=== PATIENT | female | born 1950 | race Caucasian/White ===

== ENCOUNTER → 2017-09-23 | Outpatient (CLI) | payer MEDICARE, BC ==
--- NOTE | 2017-09-23 15:08 | US ---
EXAMINATION TYPE: US thyroid st tissue head/neck DATE OF EXAM: 09/23/2017 COMPARISON: US 2016 CLINICAL HISTORY: E04.1 THYROID NODULE. Follow up thyroid nodule, history of thyroid FNA GLAND SIZE: Right Lobe: 5.0 x 1.3 x 1.3 cm Overall Parenchyma: heterogenous Left Lobe: 4.7 x 2.6 x 2.3 cm Overall Parenchyma: heterogeneous Isthmus Thickness: 0.6 cm NODULES RIGHT: # of nodules measured on right: 0 LEFT: # of nodules measured on left: 1 1. 3.1 X 2.4 x 2.4 cm hypoechoic mixed nodule at the mid pole with well-defined margins. This nodul e is wider than tall and shows intranodular vascularity. Prior size: 3.8 x 2.5 x 2.6 cm ISTHMUS: # of nodules measured in the isthmus: 0 Bilateral neck scanned, no evidence of lymphadenopathy. IMPRESSION: Large complex mixed nodule left thyroid lobe is slightly smaller in size relative to the prior study.
== END | disposition home or self-care (01) ==
LOC: RADUSWWP 14:37
PROVIDERS: ATTEND Otolaryngology
DX: E04.1 Nontoxic single thyroid nodule (principal)
CPT/HCPCS: 76536

== ENCOUNTER → 2017-10-19 | Outpatient (CLI) | payer MEDICARE, BC ==
--- NOTE | 2017-10-21 10:54 | MM ---
Reason for exam: screening (asymptomatic). Last mammogram was performed 1 year and 1 month ago. History: Patient is postmenopausal. Family history of breast cancer in aunt. Took estrogen for 5 years 4 months. Took progesterone for 5 years 4 months. Physical Findings: A clinical breast exam by your physician is recommended on an annual basis and results should be correlated with mammographic findings. MG 3D Screening Mammo W/Cad Bilateral CC and MLO view(s) were taken. Prior study comparison: September 23, 2016, bilateral MG 3d screening mammo w/cad. July 30, 2015, bilateral MG screening mammo w CAD. There are scattered fibroglandular densities. No significant changes when compared with prior studies. ASSESSMENT: Benign, BI-RAD 2 RECOMMENDATION: Routine screening mammogram of both breasts in 1 year.
== END | disposition home or self-care (01) ==
LOC: RADMAMWWP 09:53
PROVIDERS: ATTEND Family Medicine
DX: Z12.31 Encounter for screening mammogram for malignant neoplasm of breast (principal)
CPT/HCPCS: 77063; G0202

== ENCOUNTER → 2018-05-31 | Outpatient (CLI) | payer MEDICARE, BC ==
[2018-05-31 13:12] LABS: ALT 39 U/L (9-52); AST 27 U/L (14-36); Blood Urea Nitrogen 10 mg/dL (7-17)
[2018-05-31 13:29] LABS: T4, Free (Free Thyroxine) 0.86 ng/dL (0.78-2.19)
[2018-05-31 19:09] LABS: Rheumatoid Factor 7 IU/mL (0-15)
[2018-05-31 20:14] LABS: Anti-DNA, DS unit <1.0 IU/mL; DNA Double-Stranded NEGATIVE (NEGATIVE)
[2018-06-01 14:00] LABS: APTT 36 Sec(s) (<43); Dilute Russell Viper Venom 38 Sec(s) (<44)
== END | disposition home or self-care (01) ==
LOC: LABWHC1 11:43
PROVIDERS: ATTEND Psychiatry & Neurology Neurology
DX: R25.1 Tremor, unspecified (principal)
CPT/HCPCS: 36415; 82565; 84439; 84443; 84450; 84460; 84481; 84520; 85613; 85730; 86038; 86225; 86431

== ENCOUNTER → 2018-06-19 | Outpatient (CLI) | payer MEDICARE, BC ==
--- NOTE | 2018-06-19 17:54 | MR ---
EXAMINATION TYPE: MR brain wo/w con DATE OF EXAM: 06/19/2018 COMPARISON: None HISTORY: C 71, tremors for 10 years TECHNIQUE: Multiplanar, multisequence images of the brain and brainstem is performed without and with IV contras t, utilizing 7.5 mL intravenous Gadavist . FINDINGS: Diffusion weighted images demonstrate no evidence of a recent infarct or other diffusion ab normality. There is no extra-axial fluid collection or significant white matter signal abnormality, focal hyperintensity in the right frontal lobe measures 4 mm and is of questionable significance. Th e ventricular system and cisternal spaces are normal in size and appearance. The brain volume is age appropriate. Choroidal fissure cysts noted on the right. Midline structures demonstrate normal morphology. The craniocervical junction appears within normal limits. Post contrast images demonstrate no abnormal enhancement. The dural venous sinuses appear pa tent. The visualized sinuses are remarkable for minimal inflammatory change maxillary sinus on the ri ght and the globes are intact. IMPRESSION: No abnormality evident to account for patient's symptoms. Nonspecific focus of demyelinat ion of questionable clinical significance. Sinus disease.
== END | disposition home or self-care (01) ==
LOC: RADMRIMAIN 15:35
PROVIDERS: ATTEND Psychiatry & Neurology Neurology
DX: D49.6 Neoplasm of unspecified behavior of brain (principal)
CPT/HCPCS: 70553; A9581

== ENCOUNTER → 2018-11-22 | Outpatient (CLI) | payer MEDICARE, BC ==
--- NOTE | 2018-11-22 08:31 | US ---
EXAMINATION TYPE: US thyroid st tissue head/neck DATE OF EXAM: 11/22/2018 COMPARISON: 09/23/2017 CLINICAL HISTORY: 68-year-old female E04.1 Nontoxic single thyroid nodule. TECHNIQUE: Multiple sonographic images of the thyroid gland are obtained. FINDINGS: GLAND SIZE: Right Lobe: 4.7 x 1.2 x 1.5 cm Overall Parenchyma: homogenous Left Lobe: 4.9 x 1.9 x 2.4 cm Overall Parenchyma: homogeneous Isthmus Thickness: 0.4 cm NODULES RIGHT: # of nodules measured on right: 0 LEFT: # of nodules measured on left: 1 1. 3.3 X 2.3 x 2.4 cm mixed, primarily cystic nodule at the lower pole with well-defined margins. This nodule is taller than wide and shows no intranodular vascularity. Decrease in internal echoes a s compared to prior exam. Prior size: 3.1 x 2.4 x 2.4 cm ISTHMUS: # of nodules measured in the isthmus: 0 Bilateral neck scanned, no evidence of lymphadenopathy. IMPRESSION: Solitary cystic nodule in the left lobe measures 3.3 cm. Minimal internal complexity or debris may be present but this is decreased from the prior exam. Continued follow-up could be performed.
== END | disposition home or self-care (01) ==
LOC: RADUSWWP 07:43
PROVIDERS: ATTEND Otolaryngology
DX: E04.1 Nontoxic single thyroid nodule (principal)
CPT/HCPCS: 76536

== ENCOUNTER → 2019-01-01 | Outpatient (CLI) | payer MEDICARE, BC ==
--- NOTE | 2019-01-01 10:13 | MM ---
Reason for exam: screening (asymptomatic). Last mammogram was performed 1 year and 2 months ago. History: Patient is postmenopausal. Family history of breast cancer in aunt. Took estrogen for 5 years 4 months. Took progesterone for 5 years 4 months. Physical Findings: A clinical breast exam by your physician is recommended on an annual basis and results should be correlated with mammographic findings. MG 3D Screening Mammo W/Cad Bilateral CC and MLO view(s) were taken. Prior study comparison: October 19, 2017, bilateral MG 3d screening mammo w/cad. September 23, 2016, bilateral MG 3d screening mammo w/cad. The breast tissue is heterogeneously dense. This may lower the sensitivity of mammography. There is no discrete abnormality. No significant changes when compared with prior studies. ASSESSMENT: Negative, BI-RAD 1 RECOMMENDATION: Routine screening mammogram of both breasts in 1 year.
== END | disposition home or self-care (01) ==
LOC: RADMAMWWP 06:54
PROVIDERS: ATTEND Family Medicine
DX: Z12.31 Encounter for screening mammogram for malignant neoplasm of breast (principal)
CPT/HCPCS: 77063; 77067

== ENCOUNTER → 2020-04-01 | Outpatient (CLI) | payer MEDICARE, BC ==
--- NOTE | 2020-04-01 08:28 | US ---
EXAMINATION TYPE: US thyroid st tissue head/neck DATE OF EXAM: 04/01/2020 COMPARISON: US 11/22/2018 and 06/12/2014. CLINICAL HISTORY: E04.1 Thyroid nodule. Thyroid nodule, history of FNA GLAND SIZE: Right Lobe: 5.1 x 1.0 x 1.3 cm Overall Parenchyma: homogenous Left Lobe: 5.1 x 2.3 x 1.6 cm Overall Parenchyma: homogeneous Isthmus Thickness: 0.4 cm NODULES RIGHT: # of nodules measured on right: 0 LEFT: # of nodules measured on left: 1 1. 2.0 X 1.8 x 1.4 cm hypoechoic solid nodule at the mid pole with poorly defined margins. This nod ule is taller than wide and shows intranodular vascularity. Prior size: 3.3 x 2.3 x 2.4 cm ISTHMUS: # of nodules measured in the isthmus: 0 Bilateral neck scanned, no evidence of lymphadenopathy. IMPRESSION: Left thyroid nodule measures smaller than the prior currently measuring 2.0 cm and previo usly measuring 3.3 cm. However this is irregular with poorly defined margins therefore continued surv eillance remains recommendation. On the most remote examination of 2013 this nodule measured approxim ately 3.2 cm.
== END | disposition home or self-care (01) ==
LOC: RADUSWWP 07:11
PROVIDERS: ATTEND Otolaryngology
DX: E04.1 Nontoxic single thyroid nodule (principal)
CPT/HCPCS: 76536

== ENCOUNTER → 2020-05-15 | Outpatient (CLI) | payer MEDICARE, BC ==
--- NOTE | 2020-05-16 09:04 | MM ---
Reason for exam: screening (asymptomatic). Last mammogram was performed 1 year and 4 months ago. History: Patient is postmenopausal. Family history of breast cancer in aunt. Took estrogen for 5 years 4 months. Took progesterone for 5 years 4 months. Physical Findings: A clinical breast exam by your physician is recommended on an annual basis and results should be correlated with mammographic findings. MG 3D Screening Mammo W/Cad Bilateral CC and MLO view(s) were taken. Prior study comparison: January 01, 2019, bilateral MG 3d screening mammo w/cad. October 19, 2017, bilateral MG 3d screening mammo w/cad. No significant changes when compared with prior studies. ASSESSMENT: Benign, BI-RAD 2 RECOMMENDATION: Routine screening mammogram of both breasts in 1 year.
== END | disposition home or self-care (01) ==
LOC: RADMAMWWP 07:11
PROVIDERS: ATTEND Family Medicine
DX: Z12.31 Encounter for screening mammogram for malignant neoplasm of breast (principal)
CPT/HCPCS: 77063; 77067

== ENCOUNTER → 2021-05-28 | Outpatient (CLI) | payer MEDICARE, BC ==
--- NOTE | 2021-05-28 07:57 | US ---
EXAMINATION TYPE: US thyroid st tissue head/neck DATE OF EXAM: 05/28/2021 COMPARISON: US April 01, 2020 CLINICAL HISTORY: E04.1 Thyroid nodule. F/U nodule GLAND SIZE: Right Lobe: 4.9 x 1.2 x 1.0 cm Overall Parenchyma: homogenous Left Lobe: 4.3 x 1.3 x 1.5 cm Overall Parenchyma: heterogeneous Isthmus Thickness: 0.4 cm NODULES RIGHT: # of nodules measured on right: 0 LEFT: # of nodules measured on left: 1 1. 2.0 X 1.7 x 1.5 cm, lower, solid or almost completely solid, very hypoechoic nodule, which is wi travis than tall, with ill-defined margins, without echogenic foci. Prior size: 2.0 x 1.8 x 1.4 cm Bilateral neck scanned, no evidence of lymphadenopathy. Stable nodule left lobe. Persistent fairly homogeneous normal-sized thyroid with stable hypoechoic calcified 2.0 cm left thyro id nodule from most recent ultrasound which corresponds to the sampled lesion July 16, 2014. IMPRESSION: As above. No new suspicious nodules.
== END | disposition home or self-care (01) ==
LOC: RADUSWWP 07:04
PROVIDERS: ATTEND Otolaryngology
DX: E04.1 Nontoxic single thyroid nodule (principal)
CPT/HCPCS: 76536

== ENCOUNTER → 2021-11-23 | Outpatient (CLI) | payer MEDICARE, BC ==
--- NOTE | 2021-11-23 10:19 | BD ---
EXAMINATION TYPE: Axial Bone Density DATE OF EXAM: 11/23/2021 COMPARISON: 08/29/2012 CLINICAL HISTORY: Postmenopausal screening Height: 67 IN Weight: 174 LBS FRAX RISK QUESTIONS: Family History (Parent hip fracture): YES MOTHER RISK FACTORS HISTORY OF: Family History of Osteoporosis: YES MOTHER Active: YES Diet low in dairy products/other sources of calcium: YES Postmenopausal woman: AGE 49 Take estrogen and/or progesterone medications: NOT NOW How lon YEARS MEDICATIONS: Additional Medications: VIT D, EXAM MEASUREMENTS: Bone mineral densitometry was performed using the [employer]. Bone mineral density as measured about the Lumbar spine is: ----- L1-L4(G/cm2): 1.009 T Score Values are as follows: ----- L2: -1.7 ----- L3: -1.7 ----- L4: -1.4 ----- L1-L4: -1.4 Bone mineral density has: Increased 6.2% since study of: 08/29/2012 Bone mineral density about the R hip (g/cm2): 0.745 Bone mineral density about the L hip (g/cm2): 0.786 T Score values are as follows: -----R Neck: -2.1 -----L Neck: -1.8 -----R Total: -1.4 -----L Total: -1.6 Bone mineral density has: Decreased -3.4% since study of: 08/29/2012 IMPRESSION: Osteopenia (T Score between -2.5 and -1). There is slightly increased risk of fracture and the patient may be considered for treatment. Re-Screen 2-5 years. NOTE: T-SCORE=SD OF THE YOUNG ADULT MEAN.
--- NOTE | 2021-11-23 12:04 | MM ---
Reason for exam: screening (asymptomatic). Last mammogram was performed 1 year and 6 months ago. History: Patient is postmenopausal. Family history of breast cancer in aunt. Took estrogen for 5 years 4 months. Took progesterone for 5 years 4 months. Physical Findings: A clinical breast exam by your physician is recommended on an annual basis and results should be correlated with mammographic findings. MG 3D Screening Mammo W/Cad Bilateral CC and MLO view(s) were taken. Prior study comparison: May 15, 2020, bilateral MG 3d screening mammo w/cad. January 01, 2019, bilateral MG 3d screening mammo w/cad. The breast tissue is heterogeneously dense. This may lower the sensitivity of mammography. There is no discrete abnormality. ASSESSMENT: Negative, BI-RAD 1 RECOMMENDATION: Routine screening mammogram of both breasts in 1 year.
== END | disposition home or self-care (01) ==
LOC: RADMAMWWP 07:32
PROVIDERS: ATTEND Nurse Practitioner Adult Health
DX: Z12.31 Encounter for screening mammogram for malignant neoplasm of breast (principal); Z13.820 Encounter for screening for osteoporosis; M85.80 Other specified disorders of bone density and structure, unspecified site
CPT/HCPCS: 77063; 77067; 77080

== ENCOUNTER → 2023-03-24 | Outpatient (CLI) | payer MEDICARE, BC ==
--- NOTE | 2023-03-25 08:41 | MM ---
Reason for Exam: Screening (asymptomatic). Last mammogram was performed 1 year(s) and 5 month(s) ago. Patient History: Menarche at age 12. First Full-Term at age 19. Postmenopausal. Estrogen for 5 years, 4 months. Progesterone for 5 years, 4 months. Maternal aunt had breast cancer. Risk Values: Eelna 5 year model risk: 1.3%. NCI Lifetime model risk: 3.1%. Prior Study Comparison: 01/01/2019 Bilateral Screening Mammogram, [facility]. 05/15/2020 Bilateral Screening Mammogram, [facility]. 11/23/2021 Bilateral Screening Mammogram, [facility]. Tissue Density: The breast tissue is heterogeneously dense. This may lower the sensitivity of mammography. Findings: Analyzed By CAD. There is no suspicious group of microcalcifications or new suspicious mass in either breast. Overall Assessment: Negative, BI-RAD 1 Management: Screening Mammogram of both breasts in 1 year. . Patient should continue monthly self-breast exams. A clinical breast exam by your physician is recommended on an annual basis. This exam should not preclude additional follow-up of suspicious palpable abnormalities. Note on Elena scores and lifetime risk: 1. A Elena score greater than 3% is considered moderate risk. If this is the case, consider specialist referral to assess eligibility for a risk reducing agent. 2. If overall lifetime risk for the development of breast cancer is 20% or higher, the patient may qualify for future screening with alternating mammogram and breast MRI. Electronically signed and approved by: Jaquan Dasilva M.D. Radiologis
== END | disposition home or self-care (01) ==
LOC: RADMAMWWP 13:16
PROVIDERS: ATTEND Family Medicine
DX: Z12.31 Encounter for screening mammogram for malignant neoplasm of breast (principal); Z78.0 Asymptomatic menopausal state; Z80.3 Family history of malignant neoplasm of breast
CPT/HCPCS: 77063; 77067

== ENCOUNTER → 2024-04-05 | Outpatient (CLI) | payer MEDICARE, BC ==
--- NOTE | 2024-04-10 13:57 | MM ---
Reason for Exam: Screening (asymptomatic). Last screening mammogram was performed 12 month(s) ago. Patient History: Menarche at age 12. First Full-Term at age 19. Postmenopausal. Estrogen for 5 years, 4 months. Progesterone for 5 years, 4 months. Maternal aunt had breast cancer. Risk Values: Elena 5 year model risk: 1.3%. NCI Lifetime model risk: 3.0%. Prior Study Comparison: 05/15/2020 Bilateral Screening Mammogram, [facility]. 11/23/2021 Bilateral Screening Mammogram, [facility]. 03/24/2023 Bilateral MG 3D screening mammo w/cad, [facility]. Tissue Density: There are scattered areas of fibroglandular density. Findings: Analyzed By CAD. Right breast: There is no suspicious group of microcalcifications or new suspicious mass. Left breast: There is no suspicious group of microcalcifications or new suspicious mass. Overall Assessment: Negative, BI-RAD 1 Management: Screening Mammogram of both breasts in [address] [facility] will attempt to contact patient to return for supplemental views and ultrasound if indicated. Patient should continue monthly self-breast exams. A clinical breast exam by your physician is recommended on an annual basis. This exam should not preclude additional follow-up of suspicious palpable abnormalities. Note on Elena scores and lifetime risk: 1. A Elena score greater than 3% is considered moderate risk. If this is the case, consider specialist referral to assess eligibility for a risk reducing agent. 2. If overall lifetime risk for the development of breast cancer is 20% or higher, the patient may qualify for future screening with alternating mammogram and breast MRI. Electronically signed and approved by: Vic Arevalo DO
== END | disposition home or self-care (01) ==
LOC: RADMAMWWP 15:49
PROVIDERS: ATTEND Family Medicine
DX: Z12.31 Encounter for screening mammogram for malignant neoplasm of breast (principal); Z80.3 Family history of malignant neoplasm of breast
CPT/HCPCS: 77063; 77067